=== PATIENT | male | born 1985 | race African-American/Black ===

== ENCOUNTER 2016-07-20 04:17 | Emergency (ER) ==
[2016-07-20] MEDS ORDERED: XYLOCAINE 1% INJ ONE (05:01)
[2016-07-20] MEDS ORDERED: XYLOCAINE 1%/EPI 1:100,000 ONE (05:05)
[2016-07-20] MEDS ORDERED: XYLOCAINE 1%/EPI 1:100,000 INJ ONE (05:10)
[2016-07-20] MEDS ORDERED: CLEOCIN PO ONE (05:37)
--- NOTE | 2016-07-20 05:45 | PROVIDER DOCUMENTATION ---
HPI-Rash/Wound/ReCheck - General Chief Complaint: Abscess Stated Complaint: SPIDER/BUG BITE Time Seen by Provider: 07/20/16 04:49 Source: patient Allergies/Adverse Reactions: Allergies Allergy/AdvReac Type Severity Reaction Status Date / Time No Known Allergies Allergy Verified 07/20/16 04:31 Home Medications: Home Medication List Medication Instructions Recorded Confirmed Last Taken Type Citalopram [Celexa] 40 mg PO DAILY 05/01/16 05/01/16 Unknown History Prednisone 10 mg PO DAILY #21 tablet 05/01/16 Unknown Rx Risperidone 4 mg PO DAILY 05/01/16 05/01/16 Unknown History Trazodone [Desyrel] 100 mg PO HS 05/01/16 05/01/16 Unknown History Clindamycin [Cleocin] 300 mg PO Q6HR #40 capsule 07/20/16 Unknown Rx - History of Present Illness-Dermatology Nature of Presenting Problem: 30 y/o AAM with a PMHx of bronchitis that that presents to the ED with ao day h/o abscess. Pt states the abscess is located at the inner aspect of the right thigh. Pain is described as sharp, non-radiating with an intensity of 10/10. Pain is aggravated by walking/movement. Alleviating factors reported as position. No other issues. Location: reports: lower extremity Quality: reports: painful Severity: reports: mild Onset/Duration: reports: 24 hours ago Timing: reports: still present Context/Associated Symptoms: reports: abscess Identifiable cause?: No Locality of Occurance: Home Similar Symptoms Previously?: Yes - Recheck Antibiotics given: none Symptoms since procedure:: reports: pain Review of Systems - Adult - REVIEW OF SYSTEMS - ADULT Constitutional: reports: no symptoms reported Eyes: reports: no symptoms reported Ears, Nose, Mouth & Throat: reports: no symptoms reported Cardiovascular: reports: no symptoms reported Respiratory: reports: no symptoms reported Gastrointestinal: reports: no symptoms reported Genitourinary: reports: no symptoms reported Musculoskeletal: reports: no symptoms reported Integumentary: reports: skin sores/ulcer Neurological: reports: no symptoms reported Psychiatric: reports: no symptoms reported Endocrine: reports: no symptoms reported Hematologic/Lymphatic: reports: no symptoms reported Allergic/Immunologic: reports: no symptoms reported Past History - Adult - PAST MEDICAL HISTORY-ADULT Review of Records: reports: Old Records Reviewed, Nursing Assessment Review, Medications Reviewed Major Childhood Illnesses: reports: denies history Cardiovascular: reports: denies history Respiratory: reports: bronchitis Gastrointestinal: reports: denies history Obstetrical/Gynecological: reports: denies history Genitourinary: reports: denies history Musculoskeletal: reports: denies history Neurological: reports: denies history Psychiatric: reports: denies history Endocrine/Immune: reports: denies history Other Conditions: reports: denies history - PRIOR SURGERIES/PROCEDURES Surgical/Procedure History: reports: appendectomy - IMMUNIZATION STATUS Childhood Immunizations: See Nurse Assessment Flu Vaccine: See Nurse Assessment - FAMILY HISTORY Family History: reviewed, not pertinent - SOCIAL HISTORY Smoking: cigarettes, less than 1 pack/day Substance Use: none/never Alcohol Use Frequency: never Living Situation: family Physical Exam-General - PHYSICAL EXAM-ADULT Initial Vital Signs Reviewed: Yes - CONSTITUTIONAL General Appearance: appears well, alert, no apparent distress. negative: lethargic, slow to respond - EYES Eyes: PERRL/EOMI, pink conjunctivae. negative: sclera injected, scleral icterus - HEAD, EARS, NOSE, MOUTH & THROAT HENMT: normocephalic/atraumatic, moist mucous membranes, normal ENT inspection. negative: pharyngeal erythema, tonsillar exudate - NECK Neck: non-tender, full range of motion, supple. negative: C-spine tenderness - RESPIRATORY Respiratory: chest non-tender, lungs clear, normal breath sounds. negative: crackles, rales, rhonchi, stridor, wheezing - CARDIOVASCULAR Cardiovascular: normal peripheral pulses, regular rate, rhythm, no edema, no murmur - CHEST (BREASTS) Chest/Breast: no tenderness - GASTROINTESTINAL (ABDOMEN) Abdominal Exam: normal bowel sounds, non tender, soft, no organomegaly. negative: guarding, rigid, rebound, tenderness - GENITOURINARY Male Genitalia: deferred Rectal Exam: deferred - LYMPHATIC Lymphatic: no adenopathy - MUSCULOSKELETAL Back Exam: normal inspection, no CVA tenderness. negative: muscle spasm, swelling Extremity: normal range of motion, non-tender, normal gait - SKIN Integumentary: normal color, normal turgor, warm/dry, other (abscess with 1.5 x 1.5 area of induration noted at the inner aspect of the right thigh. 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 negative: facial droop, focal weakness, motor weakness, sensory deficit - PSYCHIATRIC Psych/Mental Status: normal mood/affect, normal thought content, normal thought process. negative: anxious, tearful Progress - PLAN OF CARE/RESULTS Progress/Plan/Lab Results: Orders Category Date Time Status I and D Set up DIRECTED Care 07/20/16 05:01 Active Clindamycin [Cleocin] Med 07/20/16 05:37 Discontinued 300 mg PO NOW ONE Lidocaine 1% [Xylocaine 1%] Med 07/20/16 05:01 Discontinued 20 ml INJ NOW ONE Lidocaine 1%/Epi 1:100,000 [Xylocaine 1%/Epi 1:100,000] Med 07/20/16 05:05 Discontinued 50 ml .ROUTE .STK-MED ONE Lidocaine 1%/Epi 1:100,000 [Xylocaine 1%/Epi 1:100,000] Med 07/20/16 05:10 Discontinued 50 ml INJ NOW ONE Vital Signs - 24 hr 07/20/16 07/20/16 04:23 05:46 Temperature 97.6 F Pulse Rate 82 86 Respiratory 18 14 Rate Blood Pressure 131/67 127/65 O2 Sat by Pulse 98 100 Oximetry Procedures - INCISION & DRAINAGE Site: groin area of inner right thigh Abscess Type: Simple Prepped with: Hibiclens, Sterile Drapes Applied Anesthetic: 1%, Lidocaine w/ Epinephrine Volume of Anesthetic (ml's): 3 Blade Size: 10 Packing placed?: Yes Sterile Dressing Applied?: Yes Drainage: Purulent, Small Amount Departure - Departure Time of Disposition Order: 05:39 DIAGNOSIS: Abscess of skin Qualifiers: Site of cutaneous abscess: other site Qualified Code(s): L02.818 - Cutaneous abscess of other sites Disposition: HOME 01 Certified Medical Emergency: Emergent Condition: Good Additional Instructions: PT to remove wick after 24 hours. Use physician referral line for establishment of care. ED Follow Up Instructions: You have been treated by a care provider in the Emergency Department. These instructions are being provided to you so you can have an understanding of how to care for yourself upon discharge. Upon discharge from the Emergency Department, you are responsible for making arrangements for follow-up care by a physician of your choice. Take all prescribed medications as directed. Return to the Emergency Department immediately for any new or worsening symptoms. You may call the Physician Referral phone number at [phone] to obtain a list of Physicians who are taking new patients. Prescriptions: Clindamycin [Cleocin] 300 mg PO Q6HR #40 capsule Referrals: None,PCP [Primary Care Provider] -
[2016-07-20 05:46] VITALS: BP 127/65
== END 2016-07-20 05:55 | disposition home or self-care (01) ==
LOC: ED 04:17
DX: L02.415 Cutaneous abscess of right lower limb (principal); F17.210 Nicotine dependence, cigarettes, uncomplicated; Z79.899 Other long term (current) drug therapy; Z79.52 Long term (current) use of systemic steroids